=== PATIENT | female | born 1990 | race American Indian/Alaskan Native ===

== ENCOUNTER 2017-10-25 15:27 | Outpatient (CLI) | payer BC ==
--- NOTE | 2017-10-25 16:23 | Event Note ---
Date: 10/25/17 27 year old female presents to triage at 22 weeks gestation stating she fell down her carpeted steps at home and landed on her back and buttocks. She states she did not hit her belly or her head. She states she did not lose consciousness. She was able to get up with no problem and states she can walk OK. She states she just feels bruised or sore now on her mid to lower back ( states this is where she landed). Patient denies vaginal bleeding or leaking of fluid. Patient reports active movement. Patient denies contractions. Normal FHR baseline. Abdomen soft, nontender. No vaginal bleeding noted. No contractions noted or palpated. Active movement. Will get US to evaluate placenta and will perform continuous EFM.
--- NOTE | 2017-10-25 17:20 | Ultrasound Report ---
FINAL REPORT PROCEDURE: US OB LIMITED TECHNIQUE: Real-time limited sonographic examination was performed for evaluation of size, position, heartbeat, fluid volume for each fetus with image documentation (1 or more fetuses). CPT 99723 HISTORY: fall COMPARISON: No prior studies are available for comparison. FINDINGS: MATERNAL Cervix length: Transabdominal measurement is 4.5 cm. Internal Os: Closed . FETUS IUP: Single living intrauterine . Position: Transverse, head is at the maternal right. Placental position: Anterior and right lateral, grade 0, without previa . Amniotic fluid volume: Subjectively within normal limits Heart rate and rhythm: 137 BPM, Regular . anatomic survey: Not performed. No biometric measurements were obtained. IMPRESSION: single living intrauterine gestation. Placenta has an unremarkable sonographic appearance.
[2017-10-25] MEDS ORDERED: TYLENOL PO ONE (18:00)
[2017-10-25 19:16] VITALS: BP 113/57
== END 2017-10-25 21:19 | disposition home or self-care (01) ==
LOC: TRG 15:27
PROVIDERS: ATTEND Obstetrics & Gynecology
DX: O26.892 Other specified pregnancy related conditions, second trimester (principal); W10.9XXA Fall (on) (from) unspecified stairs and steps, initial encounter; O32.2XX0 Maternal care for transverse and oblique lie, not applicable or unspecified; O47.02 False labor before 37 completed weeks of gestation, second trimester; Z3A.22 22 weeks gestation of pregnancy; Y93.89 Activity, other specified; Y92.008 Other place in unspecified non-institutional (private) residence as the place of occurrence of the external cause; Y99.8 Other external cause status
CPT/HCPCS: 76815